=== PATIENT | male | born 1965 | race Hispanic/Latino ===

== ENCOUNTER 2025-04-12 10:55 | Emergency (ER) | payer SELFPAY ==
[2025-04-12 11:29] LABS: Actual Bicarbonate (HCO3v) 21.5 mEq/L (22-28); Analyzer IN Cardio CS ER; Base Excess -3.2 mEq/L (-2 - +2); Calcium, Ionized (venous) 1.16 mmol/L (1.16-1.32); Chloride (VBG) 103 mmol/L (98-106); Hematocrit-VBG 46 % (42.0-52.0); Hemoglobin (Hb) 15.8 g/dL (13.1-17.2); Potassium (VBG) 4.43 mmol/L (3.70-5.30); Puncture Site Other Site; RapidComm Collect By Lab; Sodium 136 mmol/L (133-146)
[2025-04-12 11:46] LABS: #Basophils 0.04 10x3/uL (0.0-0.2); #Eosinophils 0.20 10x3/uL (0.0-0.5); #Monocytes 0.45 10x3/uL (0.0-1.1); #Neutrophils 4.21 10x3/uL (1.5-8.4); %Basophils 0.6 % (0.0-2.0); %Eosinophils 3.2 % (0.0-6.0); %Lymphocytes 21.2 % (18.0-47.0); %Monocytes 7.2 % (0.0-10.0); %Neutrophils 67.6 % (40.0-75.0); Hematocrit 39.5 % (38.8-50.0); Hemoglobin 14.8 g/dL (13.5-17.5); Mean Corpuscular Hemoglobin 33.8 pg (27.0-33.0); Mean Corpuscular Volume 90.2 fL (81.2-95.1); Platelet Count 239 10x3/uL (150-450); Red Blood Cell (RBC) Count 4.38 10x6/uL (4.32-5.72); White Blood Cell (WBC) Count 6.23 10x3/uL (3.5-10.5)
[2025-04-12 12:12] LABS: ALT (SGPT) 15 U/L (Less than 45); AST (SGOT) 21 U/L (11-34); Albumin 4.2 g/dL (3.1-4.5); Alkaline Phosphatase 45 U/L (40-110); Anion Gap 14 mmol/L (10-20); BUN (Urea Nitrogen) 20 mg/dL (8.4-25.7); Bilirubin, Total 0.6 mg/dL (0.3-1.2); Calc. Creatinine Clearance 0 mL/min (70-130); Calcium 8.9 mg/dL (7.8-10.44); Carbon Dioxide 21 mmol/L (22-29); Chloride 107 mmol/L (98-107); Globulin 2.6 g/dL (2.4-3.5); Glucose 280 mg/dL (70-105); Lipase 33 U/L (8-78); Magnesium 2.0 mg/dL (1.6-2.6); Potassium 4.6 mmol/L (3.5-5.1); Sodium 137 mmol/L (136-145)
[2025-04-12 12:14] LABS: Troponin I Less than 0.010 ng/mL (< 0.028)
== END 2025-04-12 13:18 | disposition home or self-care (01) ==
LOC: CSHERS 10:55
DX: R53.83 Other fatigue (principal); I10 Essential (primary) hypertension; E11.9 Type 2 diabetes mellitus without complications; Z87.891 Personal history of nicotine dependence
CPT/HCPCS: 36415; 36416; 70450; 71045; 80053; 82010; 82805; 83605; 83690; 83735; 83880; 84484; 85025; 93005